=== PATIENT | male | born 1945 | race Caucasian/White ===

== ENCOUNTER 2018-12-21 15:46 | Outpatient (REF) | payer BC, SELFPAY ==
--- NOTE | 2018-12-21 13:32 | SKI_PTH ---
PATIENT: Ismael Espana LOC: [facility] U#:[id number] AGE/SX: 73/M ROOM: RE12/21/[address]: Rigo Stauffer DO : 1945 BED: DIS: 12/21/2018 SPEC #: [id number] RECD: 12/22/18 12:15 STATUS: JACKY MUÑIZ #: [id number] RUBÉN: 12/21/18 13:[address]: Rigo Stauffer DEPT: Surgical Specimen RECD BY: Trina Sawant ENTERED: 12/22/18 12:16 SP TYPE: AUDREY MORRIS DR: Ismael Roman Tissues: 1 - SKIN BIOPSY(SHAVE/PUNCH) 2 - SKIN BIOPSY(SHAVE/PUNCH) Procedures: SKIN LEVEL 4 Comments: [id number]
== END 2018-12-21 16:06 ==
LOC: LBN 15:46
PROVIDERS: PCP Internal Medicine; Visit Provider Otolaryngology Otolaryngology/Facial Plastic Surgery
DX: C44.319 Basal cell carcinoma of skin of other parts of face (principal); C44.219 Basal cell carcinoma of skin of left ear and external auricular canal
CPT/HCPCS: 88305

== ENCOUNTER 2019-05-13 14:31 | Outpatient (REF) | payer BC, SELFPAY ==
[2019-05-13 19:01] LABS: COMMENT (LAB VIEW ONLY) 135.46 mg/dL; Microalb ug/mg Crea 11.1 ug/mg Cr
== END 2019-05-13 14:51 ==
LOC: NCHCN 14:31
PROVIDERS: PCP Internal Medicine; Visit Provider Internal Medicine
DX: E11.9 Type 2 diabetes mellitus without complications (principal)
CPT/HCPCS: 82043; 82570

== ENCOUNTER 2019-08-16 16:14 | Outpatient (REF) | payer MEDICARE, BC, SELFPAY ==
[2019-08-16 19:22] LABS: ALT 55 U/L (16-63); Anion Gap 9.4 mmol/L (3-11); BUN 28 mg/dL (7-18); CO2 28.6 mmol/L (21.0-32.0); CREATININE 1.19 mg/dL (0.70-1.30); Calcium 10.6 mg/dL (8.5-10.1); Chloride 102 mmol/L (98-107); Glucose 109 mg/dL (70-100); LDL CHOLESTEROL 86 mg/dL (<100); Potassium 4.4 mmol/L (3.5-5.1); Sodium 140 mmol/L (136-145)
== END 2019-08-16 16:34 ==
LOC: NCHCO 16:14
PROVIDERS: PCP Internal Medicine; Visit Provider Internal Medicine
DX: I10 Essential (primary) hypertension (principal); E78.2 Mixed hyperlipidemia
CPT/HCPCS: 80048; 83721; 84460

== ENCOUNTER 2019-11-15 12:24 | Outpatient (REF) | payer MEDICARE, BC, SELFPAY ==
[2019-11-15 18:46] LABS: HCT 46.1 % (40.0-50.0); Mean Corp. HGB Concentration 34.7 g/dL (32.0-36.0); Mean Corpuscular Volume 86.3 fL (80-95); Mean Platelet Volume 11.2 fL (8.0-11.0); Platelet Count 278 x1000/uL (130-400); RBC 5.34 m/cumm (4.50-6.00); RBC Distribution Width 13.2 % (11.8-14.1); White Blood Cell Count 9.71 k/cumm (4.4-10.8)
[2019-11-15 19:05] LABS: TSH 0.97 uIU/mL (0.36-3.74)
== END 2019-11-15 12:44 ==
LOC: NCHCN 12:24
PROVIDERS: PCP Internal Medicine; Visit Provider Internal Medicine
DX: I10 Essential (primary) hypertension (principal); E11.9 Type 2 diabetes mellitus without complications; I20.9 Angina pectoris, unspecified; R53.83 Other fatigue
CPT/HCPCS: 85027; 84443

== ENCOUNTER 2020-06-30 11:37 | Outpatient (REF) | payer MEDICARE, BC, SELFPAY ==
[2020-07-04 22:34] LABS: SARS-CoV-2 RNA Undetected (Undetected); SARS-CoV-2 Specimen Source Nasal
== END 2020-06-30 11:57 ==
LOC: NCHCN 11:37
PROVIDERS: PCP Internal Medicine; Visit Provider Internal Medicine
DX: J06.9 Acute upper respiratory infection, unspecified (principal); Z11.59 Encounter for screening for other viral diseases
CPT/HCPCS: U0003

== ENCOUNTER 2020-07-21 16:59 | Outpatient (REF) | payer MEDICARE, BC, SELFPAY ==
[2020-07-21 19:37] LABS: C & S Indicated? Yes; WBC >50 HPF (0-5)
== END 2020-07-21 17:19 ==
LOC: NCHCN 16:59
PROVIDERS: PCP Internal Medicine; Visit Provider Internal Medicine
DX: N39.0 Urinary tract infection, site not specified (principal)
CPT/HCPCS: 87077; 81015; 87086; 87186

== ENCOUNTER 2020-08-10 12:32 | Outpatient (REF) | payer MEDICARE, BC, SELFPAY ==
[2020-08-10 19:28] LABS: ALT 69 U/L (16-63); Anion Gap 7.8 mmol/L (3-11); BUN 25 mg/dL (7-18); CO2 27.2 mmol/L (21.0-32.0); Calcium 10.6 mg/dL (8.5-10.1); Chloride 100 mmol/L (98-107); Estimated GFR 45.87 (mL/min/1.73m2); Glucose 172 mg/dL (74-106); LDL CHOLESTEROL 99 mg/dL (<100); Potassium 4.5 mmol/L (3.5-5.1); Sodium 135 mmol/L (136-145)
== END 2020-08-10 12:52 ==
LOC: NCHCN 12:32
PROVIDERS: PCP Internal Medicine; Visit Provider Internal Medicine
DX: E11.9 Type 2 diabetes mellitus without complications (principal); N39.0 Urinary tract infection, site not specified; M54.30 Sciatica, unspecified side; I10 Essential (primary) hypertension; Z00.00 Encounter for general adult medical examination without abnormal findings
CPT/HCPCS: 80048; 83721; 84460

== ENCOUNTER 2020-08-25 10:25 | Outpatient (REF) | payer MEDICARE, BC, SELFPAY ==
[2020-08-25 20:35] LABS: Bilirubin Negative (Negative); Blood Negative (Negative); Clarity Clear (Clear); Glucose 500 mg/dL (Negative); Ketones Negative (Negative); Leukocyte Esterase Negative (Negative); Nitrite Negative (Negative); Specific Gravity 1.025 (1.005-1.025); Urobilinogen 0.2 EU/dL (Up TO 0.2)
== END 2020-08-25 10:45 ==
LOC: NCHCN 10:25
PROVIDERS: PCP Internal Medicine; Visit Provider Internal Medicine
DX: N39.0 Urinary tract infection, site not specified (principal)
CPT/HCPCS: 81003

== ENCOUNTER 2021-02-15 20:45 | Outpatient (REF) | payer MEDICARE, BC, SELFPAY ==
[2021-02-15 16:02] LABS: Bilirubin Negative (Negative); Blood Trace-intact (Negative); Clarity Cloudy (Clear); Glucose 500 mg/dL (Negative); Ketones Negative (Negative); Leukocyte Esterase Trace (Negative); Nitrite Negative (Negative); Specific Gravity 1.025 (1.005-1.025); Urobilinogen 0.2 EU/dL (Up TO 0.2); pH 5.5 (5-8)
[2021-02-15 16:09] LABS: COMMENT (LAB VIEW ONLY) 124.24 mg/dL; Microalb ug/mg Crea 41.9 ug/mg Cr
[2021-02-15 16:19] LABS: Bacteria Many HPF (Negative); C & S Indicated? Yes; Casts Negative LPF (Negative); Crystals Negative HPF (Negative); Epithelial Cells Rare HPF (Negative); Mucus Negative (Negative); RBC 0-2 HPF (0-2); WBC 20-50 HPF (0-5)
== END 2021-02-15 20:46 | disposition home or self-care (01) ==
LOC: NCHCN 20:45
PROVIDERS: PCP Internal Medicine; Visit Provider Internal Medicine
DX: E11.9 Type 2 diabetes mellitus without complications (principal); I10 Essential (primary) hypertension; K64.9 Unspecified hemorrhoids; R82.998 Other abnormal findings in urine
CPT/HCPCS: 87077; 81003; 81015; 82043; 82570; 87086; 87186

== ENCOUNTER 2021-03-14 12:00 | Outpatient (REF) | payer MEDICARE, BC, SELFPAY ==
--- NOTE | 2021-03-14 12:00 | SKI_PTH ---
PATIENT: Ismael Espana LOC: [facility] U#:[id number] AGE/SX: 76/M ROOM: RE03/14/[address]: Ismael Roman : 1945 BED: DIS: 03/14/2021 SPEC #: [id number] RECD: 03/15/21 12:44 STATUS: JACKY MUÑIZ #: [id number] RUBÉN: 03/14/21 12:[address]: Ismael Roman DEPT: Surgical Specimen RECD BY: Trina Sawant Tissues: 1 - SKIN BIOPSY(SHAVE/PUNCH) Procedures: SKIN LEVEL 4 Comments: [id number]
--- OUTSIDE RECORDS SUMMARY | 2021-03-15 11:53 | XMS_ITS | Encounter Summary ---
:1945 Author Care Team Providers Name Role Phone Ismael Roman MD Primary Care Provider [phone] Mahesh Heath MD Dynamics Ax Consultant [phone] Fidel Junior General Surgeon [phone] Reason for Visit None recorded. Assessment and Plan 1. Nocturia Ismael has symptoms of fatigue , nocturia and nocturnal heartburn which may be indicative of an underlying sleep apnea. He has HTN which may be caused or worsened by untreated sleep apnea. I di scussed the pathophysiology of obstructi ve sleep apnea and the potential consequences of untreated ANDI including how it relates to his symptoms and comorbidities. I ordered a polysomnogram and discussed what will take place the night of the s leep study. He is advised that Ambien may be offered the night of the study and if taken he will need to not drive for at least eight hours after taking or longer if for any residual drowsiness. Also wi ll need to use caution when getting up at night after taking Ambien. I will see him back to review the results as soon as they are available. He was curious about treatments so I briefly covered oral ap pliance and CPAP. ADDENDUM 02/02/21: PSG denied by [facility], HS T ordered. I provided greater than 40 minutes in [facility] care of this patient, more than half the time was spent in [id number] counseling. ? sleep study, baseline diag nostic polysomnogram Discussion Note: None recorded.Patient educational handouts: No information available. Plan of Care Reminders Provider Appointments Follow up 06/07/2021 Martín Haddad 30 2:15PM MD Kumar ? Office 08/20/2021 Bubba Barba, 3:00PM COMMERCIAL TRUCK DRIVER ? Return to on or around Fidel Mariano Office 08/20/2022 [facility] None ? ? recorded. Referral None ? ? recorded. Procedures None ? ? recorded. Surgeries None ? ? recorded. Imaging None ? ? recorded. Medications Name Start Date ? ? amlodipine 10 mg tablet ? TAKE ONE TABLET BY MOUTH EVERY DAY aspirin 81 mg chewable tablet ? Chew 1 tablet every day by oral route. atorvastatin 40 mg tablet ? TAKE ONE TABLET BY MOUTH EVERY DAY BD Ultra-Fine Mini Pen Needle 31 gauge x 12/19 ? BD Ultra-Fine Sandi Pen Needle 32 gauge x ? USE DIRECTED ONCE DAILY celecoxib 200 mg capsule ? TAKE ONE CAPSULE BY MOUTH EVERY DAY REPLACES DICLOFE NAC Claritin 10 mg tablet ? Take 1 tablet every day by oral route. finasteride 5 mg tablet ? TAKE ONE TABLET BY MOUTH EVERY DAY fluorouracil 5 % topical cream ? fluticasone propionate 50 mcg/actuation nasal spray,ochoa spension ? SPRAY 2 SPRAYS IN EACH NOSTRIL ONCE DAILY garlic 1,000 mg capsule ? Take 1 capsule every day by oral route. glipizide 10 mg tablet ? Take 1 tablet twice a day by oral route. Invokana 300 mg tablet ? Take 1 tablet every day by oral route. losartan 100 mg tablet ? TAKE ONE TABLET BY MOUTH EVERY DAY Miralax 17 gram oral powder packet ? Take 1 packet every day by oral route. multivitamin ? once daily nitroglycerin 0.4 mg sublingual tablet ? PLACE ONE TABLET UNDER THE TONGUE EVERY 5 MINUTES FOR UP TO 3 DOSES NEEDED FOR CHEST PAIN. IF CHEST PAIN STILL PERSISTS CONTACT 911 nystatin 100,000 unit/gram topical cream ? twice daily to affected area OneTouch Delica Plus Lancet 33 gauge ? TESY T DIRECTED ONCE DAILY OneTouch Ultra Blue Test Strip ? TEST ONCE DAILY OneTouch Ultra2 Meter kit ? pantoprazole 40 mg tablet,delayed release ? TAKE ONE TABLET BY MOUTH EVERY DAY FOR 14 DAYS Restasis 0.05 % eye drops in a dropperette ? triamcinolone acetonide ? 0.1% cream apply to affected area twice daily triamcinolone acetonide 0.1 % topical cream ? Victoza 3-Sahil 0.6 mg/0.1 mL (18 mg/3 mL) subcutaneous pen injector ? INJECT 1.8MG SUBCUTANEOUSLY DAILY Vitamin C ? 1 tablet daily Medications Administered None recorded. Vitals Height Weight BMI Blood Pressure 6 ft 3 in 215.2 lbs 26.9 kg/m2 144/78 mm[Hg] Results Lab Results None recorded. Allergies Code Code System Name Reaction Severity Onset Penicillins Hives ? ? Notes: NO seafood allergy. No co ntrast allergy. Problems Name Status Onset Date Source ? Hyperlipidemia Active 11/19/2019 ? Coronary Arteriosclerosis Active 11/22/2019 ? Nocturia Active 01/29/2021 ? Basal Cell Carcinoma of Truncal Skin Active ? History Melanocytic Nevus of Trunk Active ? Histo ry Type 2 Diabetes Mellitus without Active ? 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 History 2 Diabetes Mellitus Mixed Hyperlipidemia Active ? History Serous Retinal Detachment Active ? Histor y Hypertensive Disorder Active ? History Angina Pectoris Active ? History Seasonal Allergic Rhinitis Active ? Histo ry Large Prostate Active ? History Atopic Dermatitis Active ? History Cutaneous Horn Active ? History Arthropathy Active ? History Sciatica Active ? History Backache Active ? History Dupuytren's Disease of Palm Active ? Hist ory Lack of Energy Active ? History Motion Sickness Active ? History Disorder of Skin And/or Subcutaneous Active ? History Tissue Pain in Right Foot Active ? History Long-term Current Use of Drug Therapy Active ? History Atherosclerosis of Coronary Artery Active ? History without Angina Pectoris Procedures Date Name Performed by ? 08/20/2019 Colonoscopy Information not avai lable Notes: colon polyps, diverticulosis 04/15/2016 Cardiac Catheterization Information not available Vaccine List Vaccine Type COVID-19, mRNA, LNP-S, PF, 100 mcg/0.5 m L dose 12/05/2020?100 mcg 01/01/2021?100 mcg Social History Tobacco Smoking Status Never Smoker Live alone or with others? with others Notes: spo use Alcohol intake Occasional Notes: 1 - 2 a mo [employer] Diet DIABETIC Are you currently employed? Y Notes: [facility] Smokeless Tobacco Status Never used smokeless tobacco Blind or serious difficulty N Notes: we ars glasses seeing Chewing tobacco none Hard of hearing or deaf in N Notes: sta rting with one or both ears? decrease in hearing Passive smoke exposure? N Most Recent Tobacco Use 03/07/2021 Screening E-cigarette/Vape Status Never used electronic cigarettes Advance directive Y Caffeine intake Occasional Notes: 1 cup coff ee daily Drug Use N Exercise level Occasional Notes: walk 1 mil e daily, Functional Status No Impairment. Past Encounters 01/29/2021 Nocturia Kerrie Barba COMMERCIAL TRUCK DRIVER: [address] [place] [address], Ph. History of Present Illness Note: <p>Ismael Espana is seen in consultation at the request of Mahesh Heath MD for evaluation of fatigue.</p><p>
</p><p>Ismael has a medical history to include arthropathy, CAD, DM, HLD, HTN, BPH, allergic rhinitis and chest pain.</p><p>
</p><div>Echo: November 06, 2020. LVEF 65%. Normal size. Mild concentric LVH. Right ventricle normal. Sinus. Diastolic indices appear normal, no evidence elevated left-sided filling pressures. Left atrium normal 25. Right atrium normal. Aortic valve trileaflet. Trivial TR. Pulmonary [id number] mmHg. Pericardium normal. Aortic root mildly dilated 3.9. Ascending normal 3.5. Arch normal 3.1. No coarct. No PDA. IVC normal. E primed 9, 8 (7, 10). E/E primed 8.8/10.0 (15, 12). TR max 1.97.&lt ;p>
</p></div><div>Stress: October 18, 2020. Ambulated 5 minutes 58 seconds on the Rayray protocol. Achieved 91% MPHR, 134 bpm. Stopped because of dyspnea. No chest pain. No EKG changes. Sinus rhythm baseline, no arrhythmia. Normal hemodynamics. Oxygen saturation 94% yoselin. Average functionality. Normal perfusion. LVEF 73%. Negative ischemia.</div><div>
</div><div>EKG: June 06, 2019. Sinus rhythm 75 bpm. Normal axis. Q waves lead III.No acute change. QT/QTc 352/378 ms.</div><div><p>
</p></div>&l t;div>Radiology: November 21, 2020. Chest x-ray. No acute abnormality.</div><div><p >
</p></div><div>Labs: November 06, 2020. Troponin less than 0.06x1. proBNP less than 50. BUN/creatinine 18/0.9. Calcium elevated 10.6. Chloride low 97. Lites normal otherwise. CBC normal.<p>June 24, 2020. BUN/creatinine 25/1.1. Sodium low 134, calcium elevated 10.7. Lites normal otherwise. AST/ALT normal. WBC 17.6. CBC normal otherwise.</p><p>
</p><p>{{Ismael# Patient}} feels {{his * her}} biggest problem with sleep is {{frequent urination# snoring waking up a lot not feeling rested}}. {{He * She}} typically goes to bedat {{10:45# 9}}pm. It takes {{15# 5}} minutes to fall asleep. {{He * She}} wakes up {{3-4# 1 2 3}} times a night to use the {{unknown reason pain bathroom*}} and it takes {{10# }} minutes to get back to sleep. {{He * She }} gets up at {{8# 5 6 7 8}}am to start {{his * her}} day. {{He* She}} does take naps daily for 30 minutes. {{He * She}} has no disturbances to {{his * her}} sleep. {{He * She}} has never had a sleep study. {{He * She}} sleeps {{alone with someone*}} in a bed.

SLEEP QUALITY: Feels quality of sleep most nights is {{good okay * poor}}.&l t;br>

DAYTIME ALERTNESS: Reports level of alertness most days to be {{alert low energy * sleepy very sleepy}}.

PSYCH SYMPTOMS: {{Has Has not*}} noted worsening memory {{and or*}} concentration. {{Does have Denies current problems with *}} irritability, depression, {{and or*}} anxiety. {{Has Has not*}} noted difficulty with calculations.

INSOMNIA SYMPTOMS: {{Does have Does not have*}} an active mind at night when trying to sleep. {{Does have Does not have*}} stressful thoughts interfering with sleep. {{Does * Does not}} watch the clock throughout the night. {{Does Does not*}} worry about getting a good night'ssleep.

BREATHING SYMPTOMS: {{Does have Does not have*}} snoring. {{Does have Does not have*}} witnessed apnea. {{Does have Does not have*}} nocturnal choking/gasping/dyspnea.{{Does have Does not have*}} mouth breathing. {{Does have * Does not have}} nasal congestion at night.

MOVEMENT SYMPTOMS: {{Does have * Does not have}} tossing & turning. {{Does have * Does not have}} messy sheets in the morning. {{Does have Does not have*}} leg or arm jerks, kicks or twitches in sleep or prior to falling asleep. {{Does Does not*}} have an aching, restless or crawling feeling in legs at night. {{Does Does not*}} have a hard time keeping legs still when trying to sleep. {{Does Does not*}} have muscle cramps or Fercho horses. {{Does Does not*}} have sleep walking or talking.

DREAM SYMPTOMS: {{Does have Does not have*}} nightmares often that affect ability to sleep. {{Does have Does not have*}} dreams of suffocating/drowning. {{Does * Does not}} dream shortly after falling asleep. {{Does Does not*}} see dreams in the room even when awake.{{Does Does not*}} see or hear things in the room when falling asleep that aren't really there. {{Does Does not*}} see things in the road when driving that aren't really there. {{Has Has not*}} had someone see then act our their dreams. {{Has Has not*}} accidentally injured themselves while sleeping due to own movements/behaviors.

CATAPLEXY SYMPTOMS: {{Does have Does not have*}} feel limp, lose strength, or fall asleep when veryangry, surprised or laughing. {{Does have Does not have*}} leg, arm or face weakness when upset. {{Has Has not*}} had episodes of being unable to move when waking up which is often frightening.

DRIVING: {{Has Has not*}} fallen asleep or nearly fallen asleep driving. {{Has had Has not had*}} an accident related to drowsy driving or not paying attention. {{Does Does not*}} forget the last few miles or minutes while driving. {{Has Has not*}} driven out of [place] and crossedcenter line or gone onto shoulder when driving. {{Has Has not*}} had a passenger tell them they look sleepy when driving.

ESS today 02/26
[place] Questionnaire Score 10/08</p></div>Review of Systems: ROS as noted in the HPI Review of Systems ? Notes: <p>wakes with dry mouth, SMYTH , chest pain, palpitations, heartburn (wakes with this sporadically), constipa tion, ED, nocturia 3-4/night, lightheadedness, joint pain (hands/back).</p> Physical Exam ? Notes: <p>General: A&O, well groome d, answers questions appropriately, {{mildly over weight # over weight obese morbidly obese normal weight thin}}.
HEAD: normocephal ic & atraumatic, {{normal appearing chin * retrognathia}}.
EYES: non icteric.
NOSE: open nasal passages, septum midline, no polyps or masses .
THROAT/MOUTH: moist mucous membranes, modified mallampati score {{ 1 2 * 3 4}}, tonsils without hypertrophy. Lateral wall narrowing grade {{1 2 3*}}. Tongue scalloping {{is is not*}} noted.
NECK: suppl e without palpable lymph nodes.
LUNGS: CTA all benoit. Good air movement.<b r>CARDIO: RRR without murmur, gallop or thrill.
ABDOMEN: soft and non tender with positive bowel sounds.
MS: Good ROM of all extremities. No cyanosis, clubbing or edema.
NEURO: A&O. Normal gait.
PSYCH: No rmal mood and affect.
CUTANEOUS: no overt lesions or rashes</p>
--- OUTSIDE RECORDS SUMMARY | 2021-03-15 11:53 | XMS_ITS | Encounter Summary ---
:1945 Author Care Team Providers Name Role Phone Ismael Roman MD Primary Care Provider [phone] Mahesh Heath MD Tool Straightener [phone] Fidel Junior General Surgeon [phone] Reason for Visit CAD - Coronary Artery Disease; SOB-Short ness of Breath; HTN-Hypertension Assessment and Plan Assessment Note Date: March 07, 2021 Referring: Re: Ismael Espana 75-year-old man Problems: 1. Coronary artery disease. History exertional angina. Positive stre ss test. Initial medical management. 2016: LHC: No critical occlusive disease . Subsequently, he has not have any furthe r exertional chest discomfort. 2. Fatigue. He does describe some fatigue. Does not snore. Fatigue does not limit him exertionally. 3. Shortness of breath. Patient remains fairly functional. He st ays busy around the house. He goes walking with his a distance of 1 mile. Does this 5+ days per week. This has an uphill section. He has been describing shor tness of breath on this section of his w alk. His walks faster than he does. He tries to keep up with her and is short of breath in this capacity. He denies shortness of breath otherwise. All of his other activities around the house are well-tolerated. He has no problem with chest discomfort chest pain tightness etc. Only saw the patient in June, we ag charisma to see if more exercise might not improve dyspnea, our hope that he may improve his conditioning. It appears that his dyspnea is persistent, no improvement w ith maintaining or increasing his baseli ne functionality. HPI: March 07, 2021. He picked up an exerc ise bike. He has been very consistent and faithful about using this, about 15 minutes/day. This was going well, however had hemorrhoids which limited his sitting on the bicycle seat. He is walking 10 to 15 minutes daily most days of the week. He has gone out for a longer walk about 45 minutes, he has hip discomfort which begins to be problematic at this sort of endurance. His breathing is about the same. No sign ificant chest discomfort. Denies PND orthopnea edema. No palpitations. Blood pressures at home are in the 120-130 mmHg range systolic. No presyncope or syncope. DATA: Cardiac risk factors: Positive cholester ol. Positive diabetes. Positive hypertension. Negative tobacco. Negative family history early coronary disease. Social history: Activity profile as abov e. Negative tobacco. Rare alcohol. Past medical history: Basal cell carcino ma. Dupuytren's disease of the palm. Prostatism. Motion sickness. Sciatica. Retinal detachment. Review of systems: A 10-point review of systems was obtained. Pertinent positives as described in HPI, all others negative. Allergies: NKDA Contrast allergies: Echo: November 06, 2020. LVEF 65%. Normal size. Mild concentric LVH. Right ventricle normal. Sinus. Diastolic indices appear normal, no evidence elevated left-sided filling pressures. Left atrium normal 25. Right atrium normal. Aortic valve tr ileaflet. Trivial TR. Pulmonary pressure 50-25 mmHg. Pericardium normal. Aortic root mildly dilated 3.9. Ascending normal 3.5. Arch normal 3.1. No coarct. No PDA. IVC normal. E primed 9, 8 (7, 10). E/E primed 8.8/10.0 (15, 12). TR max 1.97. April 05, 2015. LVEF 65%. Normal size. Mil d LVH. Right ventricle normal. Left atrium normal. Right atrium normal. Aortic valve trileaflet. Trivial TR. Negative pericardium. Aortic root normal 3.7. Ascendi ng normal 3.5. Arch normal 3.1. IVC norm al. Lipomatous interatrial septum. Rhythm unclear. Presumed sinus. E prime 7, 9 (7, 10). E/E primed 11.3, 9.5 (15, 12). Pulmonary pressure 25-30 mmHg plus right atrial pressure (25-35 mg total). Cardiac MRI: Stress: October 18, 2020. Ambulated 5 mi nutes 58 seconds on the Rayray protocol. Achieved 91% MPHR, 134 bpm. Stopped because of dyspnea. No chest pain. No EKG changes. Sinus rhythm baseline, no arrhythmi a. Normal hemodynamics. Oxygen saturatio n 94% yoselin. Average functionality. Normal perfusion. LVEF 73%. Negative ischemia. September 06, 2016. Ambulated 4 minutes 10 seconds on the Rayray protocol. 76% MPHR, 160 bpm. Stop because of fatigue. No EKG changes. No chest pain. Baseline echo LVEF 65%. Normal augmentation. Negative i schemia at submaximal heart rates. Indet erminate study. LHC: April 15, 2016. [facility]. Left main : Mild disease. LAD: Mild disease. LCx: Mild disease. RCA: Mild disease. RPDA. Multiple 50% proximal. IFR proximal RPDA: 1.0. Holter: Event monitor: EKG: March 07, 2021. Sinus rhythm 81 bpm. First-degree AV block. GA interval 222 ms. Normal axis. No acute change. QT/QTc 336/372 ms December 08, 2020. Sinus rhythm 86 bpm. Norm al axis. No acute change. QT/QTc 328/373 ms. June 06, 2019. Sinus rhythm 75 bpm. Normal axis. Q waves lead III. No acute change. QT/QTc 352/378 ms. June 06, 2017. Sinus rhythm 63 bpm. Normal axis. No acute change. QT/QTc 300 382/387 ms. April 15, 2016. Sinus rhythm 59 bpm. Norm al axis. No acute change. QT/QTc 402/397 ms. Radiology: November 21, 2020. Chest x-ra y. No acute abnormality. June 24, 2020. Chest x-ray. No foca l consolidation. Pulmonary function test: Labs: November 06, 2020. Troponin less th an 0.06x1. proBNP less than 50. BUN/creatinine 18/0.9. Calcium elevated 10.6. Chloride low 97. Lites normal otherwise. CBC normal. June 24, 2020. BUN/creatinine 25/1. 1. Sodium low 134, calcium elevated 10.7. Lites normal otherwise. AST/ALT normal. WBC 17.6. CBC normal otherwise. Medications: Amlodipine 10 mg daily, asp irin 81 mg daily, atorvastatin 40 mg daily, losartan 100 mg daily Vitamin C, Victoza, pantoprazole, multiv itamin, MiraLAX, Invokana, glipizide, garlic, fluticasone, finasteride, Claritin, celecoxib Exam: Blood pressure: 139/68 Heart rate: 83 Oxygen saturation: 96% Weight: 207 pounds, 215 pounds, 215 poun ds, 216.3 pounds General: Patient alert oriented appropri ate conversant. HEENT: JVP 7 cm sitting. Heart: Regular rate and rhythm, S1-S2, n o murmur gallop or rub. Lungs: Clear to auscultation bilaterally . Abdomen: Soft. Nontender. Nondistended. No sacral edema. Extremities: No lower extremity edema bi laterally. Assessment: 1. Chest pain. Apparently history abnormal stress test led to [facility] 2016: Nonocclusive coronary disease. Status post submaximal stress echo later in 2016 (negative ischemia at sub-max heart rate). Currently maintaining a reasonable activ ity profile without any significant exertional chest discomfort. Overall seems to be doing well. MPI November 2020: Negative ischemia. Maintained on aspirin beta-remedios stati n amlodipine. I did not alter his medications today, March 07, 2021. 2. Hypertension. Numbers are acceptable. 3. Shortness of breath. Is continuing to describe exertionally m ediated shortness of breath. No improvement with increased/ongoing activity profile. Evaluation November 2020: Echo normal LV systolic function. Diastolic indices appear normal. Right ventricle normal. Pulmonary pressures normal. MPI normal. Labs normal: Troponin, BNP, CBC. Chest x-ray normal. He has started to use an exercise bike w ith regular frequency. Appears to be going well. Limited because of issues sitting on a bicycle seat. Walking is likewise limited because of hip weakness. I encouraged him to walk multiple 10-min charles stretches daily. We agreed to get PFTs. At this point, I think his dyspnea relat ed to deconditioning. Thank you for allowing me to participate in this patient's care. Sincerely, Mahesh Heath MD, FACC Disposition: We will see him back 3 hugo hs. Time: 20-minute [id number] interview w ith patient. 10-minute chart review development completion 1. Dyspnea ? complete PFT w/ [facility] spirometry Discussion Note: None recorded.Patient educational handouts: No information available. Plan of Care Reminders Provider Appointments Follow up 06/07/2021 Martín Haddad 30 2:15PM MD Kumar ? Office 30 08/20/2021 Bubba Barba, 3:00PM RIDES ATTENDANT ? Return to on or around [facility] Office 08/20/2022 [facility] None ? [...] BMI Blood Pressure 6 ft 3 in 93.85 kg 25.9 kg/m2 139/68 mm[Hg] Results Lab Results None recorded. Allergies [...] Performed by ? 08/20/2019 Colonoscopy Information not avayala hernandez Notes: colon polyps, diverticulosis 04/15/2016 Cardiac Catheterization Information not available Vaccine List Vaccine Type COVID-19, mRNA, LNP-S, PF, 100 mcg/0.5 m L dose 12/05/2020?100 mcg 01/01/2021?100 mcg Social History Tobacco Smoking Status Never Smoker Live alone or with others? 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 Past Encounters 03/07/2021 Dyspnea Mahesh Heath MD: [address] [facility] [place] [address], Ph. History of Present Illness None recorded. Review of Systems None recorded. Physical Exam None recorded.
--- OUTSIDE RECORDS SUMMARY | 2021-03-15 11:53 | XMS_ITS ---
:1945 Author Care Team Providers Name Role Phone TRAVON ROTHMAN General Surgeon [phone] MARTINEZ PATTON MD Primary Care Provider [phone] MAHESH DAVIS MD Data Warehouse Developer [phone] Allergies Code Code System Name Reaction Severity Status Onset Penicillins Hives ? Active ? Notes: NO seafood allergy. No co ntrast allergy. Medications Name Status Start Date Stop Date ? ? Ambien 10 mg tablet Completed 11/28/2011 05/18/2013 1 Tablet: At bedtime as needed amlodipine 10 mg tablet Active ? Not avai lable aspirin 81 mg chewable tablet Active ? No t available Chew 1 tablet every day by oral route. atorvastatin 40 mg tablet Active ? Not av ailable TAKE ONE TABLET BY MOUTH EVERY DAY BD Ultra-Fine Mini Pen Needle Active ? No t available 31 gauge x 3/16 BD Ultra-Fine Sandi Pen Needle 32 gauge x 5/32 Active ? Not available USE DIRECTED ONCE DAILY celecoxib 200 mg capsule Active ? Not gerardo ilable TAKE ONE CAPSULE BY MOUTH EVERY DAY REPLACES DICLOFENAC Claritin 10 mg tablet Active ? Not availa ble Take 1 tablet every day by oral route. diclofenac ER 100 mg tablet,extended release 24 hr Completed ? 09/27/2020 TAKE ONE TABLET BY MOUTH EVERY DAY doxazosin 4 mg tablet Completed 05/18/2013 11/19/2017 1 Tablet: qhs - at bedtime fenofibrate micronized 200 mg capsule Completed 11/28/2011 12/05/2011 1 Capsule: qd - daily fexofenadine 180 mg tablet Completed 11/28/201108/19 1 Tablet: daily finasteride 5 mg tablet Active ? Not avai lable TAKE ONE TABLET BY MOUTH EVERY DAY Flomax 0.4 mg capsule Completed 08/19/2012 05/18/2013 1 Capsule: qd - daily fluorouracil 5 % topical cream Active ? N ot available fluticasone propionate 50 mcg/actuation nasal spray,suspension A ctive ? Not available SPRAY 2 SPRAYS IN EACH NOSTRIL ONCE DAILY garlic 1,000 mg capsule Active ? Not avai lable Take 1 capsule every day by oral route. glipizide 10 mg tablet Active ? Not avail able Take 1 tablet twice a day by oral route. glipizide ER 2.5 mg tablet, extended release 24 hr Completed ? 09/27/2020 Take 1 tablet twice a day by oral route for 90 days. glipizide ER 5 mg tablet, Completed ? 2020 extended release 24 hr hydrocodone 5 mg-acetaminophen 325 mg tablet Completed 08/19/2012 2 (two) Tablet: every four to six hours as needed Invokana 300 mg tablet Active ? Not avail able Take 1 tablet every day by oral route. lisinopril 20 mg-hydrochlorothiazide 12.5 mg tablet Completed 11/28/2011 05/18/2013 2 (two) Tablet: daily losartan 100 mg tablet Active ? Not avail able TAKE ONE TABLET BY MOUTH EVERY DAY metoprolol succinate ER 50 mg Completed ? tablet,extended release 24 hr Miralax 17 gram oral powder packet Active ? Not available Take 1 packet every day by oral route. multivitamin Active ? Not available once daily nitroglycerin 0.4 mg sublingual tablet Active ? Not available PLACE ONE TABLET UNDER THE TONGUE EVERY 5 MINUTES FOR UP TO 3 DOSES NEEDED FOR CHEST PAIN. IF CHEST PAIN STILL PERSISTS CONTACT 911 nystatin 100,000 unit/gram topical cream Active ? Not available twice daily to affected area OneTouch Delica Plus Lancet 33 gauge Active ? Not available TESY T DIRECTED ONCE DAILY OneTouch Ultra Blue Test Strip Active ? N ot available OneTouch Ultra2 Meter kit Active ? Not av ailable pantoprazole 20 mg tablet,delayed release Completed ? 01/13/2020 Take 1 tablet by oral route for 29 days. pantoprazole 40 mg tablet,delayed release Active ? Not available TAKE ONE TABLET BY MOUTH EVERY DAY FOR 14 DAYS Prilosec 20 mg capsule,delayed release Completed 3 11/19/[address]: qd - daily Restasis 0.05 % eye drops in a Active ? N ot available dropperette sulfamethoxazole 800 mg-trimethoprim 160 mg tablet Completed ? 09/27/2020 TAKE ONE TABLET BY MOUTH TWICE A DAY triamcinolone acetonide Active ? Not avai lable 0.1% cream apply to affected area twice daily triamcinolone acetonide 0.1 % Active ? No t available topical cream Verelan 180 mg capsule,extended release Completed 11/28/19 12 11/19/2017 1 Capsule ER 24HR: bid - twice daily Victoza 0.6 mg/0.1 mL (18 mg/3 mL) subcutaneous pen injector Com pleted ? 12/07/2020 Inject 2 mL every day by subcutaneous route. Victoza 3-Sahil 0.6 mg/0.1 mL (18 mg/3 mL) subcutaneous pen inject or Active ? Not available INJECT 1.8MG SUBCUTANEOUSLY DAILY Vitamin C Active ? Not available 1 tablet daily Problems Name Status Onset Date Source ? [...] diverticulosis 04/15/2016 Cardiac Catheterization Information not available 09/27/2020 XR, Chest, 2 View [facility] (Internal) [address] [place] [address] (Work Place) 09/27/2020 US, Echocardiogram, Transthoracic, [facility] Rad[facility] (Internal) Complete [address] [place], [place] [address] (Work Place) 09/27/2020 NM, Myocardial Perfusion Scan, W/ [facility] (Internal) Stress [address] [place] [address] (Work Place) Results Lab Results Date Name Specimen Result Interpretation Description Value Range Status Address ? 03/09/2021 EKG Done by ? No ? ? ? N orth Lab observation Count ry recorded. [facility] l Lab (Internal) : [address] 11/06/2020 CBC W/ Auto BLD ? Wbc 8.2 5.0-10.0 Final [place] Diff 10*3/uL 10*3/uL [facility] ab (Internal) : [address] ? ? BLD ? Rbc 5.58 4.60-6.0 Final [place] 10*6/uL 0 [facility] 10*6/uL Hospital Lab (Internal) : [address] ? ? BLD ? Hgb 16.6 g/dL 14.0-18. Final North 0 g/dL [facility] (Internal) : [address] ? ? BLD ? Hct 49.1 % 41.0-51. Final [place] 0 % [facility] (Internal) : [address] ? ? BLD ? Mcv 88.0 fL 80.0-96. Final [place] 0 fL [facility] (Internal) : [address] ? ? BLD ? Mch 29.7 pg 26.0-32. Final [place] 0 pg [facility] (Internal) : [address] ? ? BLD ? Mchc 33.8 g/dL 31.0-35. Final [place] 0 g/dL [facility] (Internal) : [address] ? ? BLD ? Rdw 12.2 % 11.5-14. Final [place] 5 % [facility] (Internal) : [address] ? ? BLD ? Plt 232 130-450 Final [place] 10*3/uL 10*3/uL [facility] (Internal) : [address] ? ? BLD ? Anc 3.97 ? Final [place] 10*3/uL [facility] (Internal) : [address] ? ? BLD ? Nlr 1.36 0.00-3.2 Final North 0 [facility] (Internal) : [address], [place] ? ? BLD ? Neutro 48.3 % 40.0-75. Final [facility] 0 % [facility] (Internal[facility] : [address] ? ? BLD ? Lymph 35.4 % 20.0-50. Final [facility] 0 % [facility] (Internal[facility] : [address] ? ? BLD ? [place] 8.9 % 2.0-10.0 Final [facility] % [facility] (Internal) : [address] ? ? BLD High Eos 6.1 % 1.0-6.0 Final [facility] % [facility] (Internal) : [address] ? ? BLD High Baso 1.2 % 0.0-1.0 Final [facility] % [facility] (Internal) : [address] ? ? BLD ? Ig 0.1 % 0.0-0.9 Final [facility] % [facility] (Internal[facility] : [address] t 11/06/2020 BMP, Serum S High g/r 319 mg/dL 74-106 Final [place] or Plasma mg/dL [facility] (Internal) : [address] ? ? S ? Bun 18 mg/dL 9-20 Final [place] mg/dL [facility] (Internal) : [address] t ? ? S ? Crea 0.90 0.66-1.2 Final [place] mg/dL 5 mg/dL [facility] (Internal) : [address] t ? ? S High Ca 10.6 8.4-10.2 Final [place] mg/dL mg/dL [facility] (Internal) : [address] ? ? S ? Na 138 137-145 Final [place] mmol/L mmol/L [facility] (Internal) : [address] ? ? S ? K 4.2 3.5-5.1 Final [place] mmol/L mmol/L [facility] (Internal) : [address] ? ? S Low Cl 97 mmol/L 98-107 Final [place] mmol/L [facility] (Internal) : [address] ? ? S ? Tco2 30.0 22.0-30. Final [place] mmol/L 0 mmol/L [facility] (Internal) : [address] 11/06/2020 BNP (B-type S ? Nt-probnp <50 pg/mL 0-125 F inal North Natriuretic pg/mL Count ry Peptide), Hospita l Lab Prohormone (Inter nal): N-terminal, [address], [address] Immunoassay, Blood 11/06/2020 Troponin I, S ? Trop <0.06 0.00-0.0 Final [place] Serum or NG/mL 6 NG/mL [facility] Plasma Hospital L ab (Internal) : [address] 06/24/2020 CBC W/ Auto BLD High Wbc 17.6 5.0-10.0 Final [place] Diff 10*3/uL 10*3/uL [facility] ab (Internal) : [address] ? ? BLD ? Rbc 4.70 4.60-6.0 Final [place] 10*6/uL 0 [facility] 10*6/uL Hospital Lab (Internal) : [address] ? ? BLD ? Hgb 14.1 g/dL 14.0-18. Final [place] 0 g/dL [facility] ab (Internal) : [address] ? ? BLD ? Hct 41.4 % 41.0-51. Final North 0 % [facility] ab (Internal) : [address] ? ? BLD ? Mcv 88.1 fL 80.0-96. Final North 0 fL [facility] (Internal) : [address] ? ? BLD ? Mch 30.0 pg 26.0-32. Final North 0 pg [facility] ab (Internal) : [address] ? ? BLD ? Mchc 34.1 g/dL 31.0-35. Final North 0 g/dL [facility] ab (Internal) : [address] ? ? BLD ? Rdw 12.4 % 11.5-14. Final North 5 % [facility] (Internal) : [address] ? ? BLD ? Plt 215 130-450 Final [place] 10*3/uL 10*3/uL [facility] (Internal) : [address] 06/24/2020 Differential BLD High Polys 87 % 40-75 % Final [facility], [facility] Blood Hospital L ab (Internal) : [address] ? ? BLD ? Bands 0 % 0-5 % Final [facility] ab (Internal) : [address] ? ? BLD Low Lymphs 6 % 20-50 % Final [facility] L ab (Internal) : [address] ? ? BLD ? [place] 4 % 2-10 % Final [facility] ab (Internal) : [address] ? ? BLD ? Eos 0 % 0-6 % Final [facility] ab (Internal) : [address] ? ? BLD ? Baso 0 % 0-1 % Final [facility] ab (Internal) : [address] ? ? BLD ? Atyp Lymph 3 % ? Final [facility] ab (Internal) : [address] ? ? BLD ? Plts, Est. adequate adequate Final N orth [facility] ab (Internal) : [address] ? ? BLD ? RBC normal normal Final [facility] L ab (Internal) : [address] ? ? BLD ? Baso Stipp rare ? Final [facility] ab (Internal) : [address] 06/24/2020 Neutrophil BLD ? Anc-manual 15.34 ? Ilana antonio [place] Count, 10*3/uL [facility] Absolute Hospital Lab (Anc), Blood (Int ernal): [address] 06/24/2020 Nlr-manual BLD High Nlr - 14.50 0.00-3.[address] Hospital L ab (Internal) : [address] 06/24/2020 Urinalysis, UR ? UA-color yellow pale Final [place] Dipstick, yellow [facility] Reflex Micro Hosp ital Lab (Internal) : [address] ? ? UR ABNORMAL UA-appear hazy clear Final [facility] L ab (Internal) : [address] ? ? UR ? UA-spec 1.020 1.003-1. Final [place] Grav [address] [place] [address] L ab (Internal) : [address] ? ? UR ? UA-pH 5.5 [pH] 4.6-8.0 Final [place] [pH] [facility] L ab (Internal) : [address] ? ? UR ? UA-leuk Est negative negative Final [facility] L ab (Internal) : [address] ? ? UR ? UA-nitrite negative negative Final N [facility] L ab (Internal) : [address] ? ? UR ABNORMAL UA-prot trace negative Final [facility] ([facility]) : [address] ? ? UR ? UA-gluc 2+ negative Final [facility] ab (Internal) : [address] ? ? UR ? UA-ketone negative negative Final No rth [facility] L ab (Internal) : [address] t ? ? UR ? UA-urobil normal normal Final [facility] ab (Internal) : [address] ? ? UR ? UA-bili negative negative Final [facility] L ab (Internal) : [address] ? ? UR ABNORMAL UA-blood trace negative Final [facility] ab (Internal) : [address] 06/24/2020 CMP, Serum S High g/r 333 mg/dL 74-106 Final [place] or Plasma mg/dL [facility] L ab (Internal) : [address] ? ? S High Bun 25 mg/dL 9-20 Final [place] mg/dL [facility] L ab (Internal) : [address] ? ? S ? Crea 1.10 0.66-1.2 Final [place] mg/dL 5 mg/dL [facility] L ab (Internal) : [address] ? ? S High Ca 10.7 8.4-10.2 Final [place] mg/dL mg/dL [facility] L ab (Internal) : [address] ? ? S Low Na 134 137-145 Final [place] mmol/L mmol/L [facility] Hospital L ab (Internal) : [address] ? ? S ? K 4.3 3.5-5.1 Final [place] mmol/L mmol/L [facility] Hospital L ab (Internal) : [address] ? ? S ? Cl 100 98-107 Final [place] mmol/L mmol/L [facility] L ab (Internal) : [address] ? ? S ? Tco2 25.0 22.0-30. Final [place] mmol/L 0 mmol/L [facility] L ab (Internal) : [address] ? ? S ? Tp 7.4 g/dL 6.3-8.2 Final [place] g/dL [facility] L ab (Internal) : [address] ? ? S ? Alb 4.2 g/dL 3.5-5.0 Final [place] g/dL [facility] L ab (Internal) : [address] ? ? S ? Tbil 1.1 mg/dL 0.2-1.3 Final [place] mg/dL [facility] L ab (Internal) : [address] ? ? S ? Alp 77 U/L 38-126 Final [place] U/L [facility] L ab (Internal) : [address] ? ? S ? Alt (Sgpt) 27 U/L 21-72 Final [place] U/L [facility] L ab (Internal) : [address] ? ? S ? Ast (Sgot) 22 U/L 17-59 Final [place] U/L [facility] L ab (Internal) : [address] 06/24/2020 Urinalysis, UR ABNORMAL UA-WBC 10-25 0-3 Final [place] Microscopic [hpf] [hpf] Count Hospital L ab (Internal) : [address] ? ? UR ? UA-RBC 0-2 [hpf] 0-2 Final North [hpf] [facility] L ab (Internal) : [address] ? ? UR ABNORMAL UA-bacteria moderate none Final North [hpf] seen [facility] [hpf] Hospital L ab (Internal) : [address] ? ? UR ABNORMAL UA-epitheli few [hpf] none Final North al seen Country [hpf] [facility] ab (Internal) : [address] ? ? UR ABNORMAL UA-mucus moderate none Final Nor th [hpf] seen [facility] [hpf] [facility] ab (Internal) : [address] ? ? UR ? Ca Ox Cryst few [hpf] ? Final N orth [facility] ab (Internal) : [address] ? ? UR ? Granular C rare ? Final North [hpf] [facility] ab (Internal) : [address] 06/24/2020 Culture UR ? Final microbiol ? Final No rth ([place] [place] Count), results Hospital Lab Urine (Internal) : [address] 06/13/2020 EKG Done by ? No ? ? ? N orth Lab observation Count ry recorded. Hospita l Lab (Internal) : [address] 08/20/2019 Pathology TISS - Report (see ? Final No rth Study below) [facility] ab (Internal) : [address] 12/11/2017 Pathology TISS ? Report results ? Final N orth Study below [facility] ab (Internal) : [address] 06/11/2017 Venipuncture BLD ? Venpn* ? ? Final [facility] ab (Internal) : [address] 06/11/2017 CMP, Serum S High g/r 157 mg/dL 74-106 Final North or Plasma mg/dL [facility] ab (Internal) : [address] ? ? S High Bun 23 mg/dL 9-20 Final [place] mg/dL [facility] ab (Internal) : [address] ? ? S ? Crea 1.00 0.66-1.2 Final [place] mg/dL 5 mg/dL [facility] L ab (Internal) : [address] ? ? S ? Ca 9.9 mg/dL 8.4-10.2 Final [place] mg/dL [facility] L ab (Internal) : [address] ? ? S ? Na 140 137-145 Final [place] mmol/L mmol/L [facility] ab (Internal) : [address] ? ? S ? K 4.3 3.5-5.1 Final [place] mmol/L mmol/L [facility] (Internal) : [address] ? ? S ? Cl 100 98-107 Final [place] mmol/L mmol/L [facility] (Internal) : [address] ? ? S ? Tco2 26.0 22.0-30. Final [place] mmol/L 0 mmol/L [facility] (Internal) : [address] ? ? S ? Tp 7.9 g/dL 6.3-8.2 Final [place] g/dL [facility] (Internal) : [address] ? ? S ? Alb 4.7 g/dL 3.5-5.0 Final [place] g/dL [facility] (Internal) : [address] ? ? S ? Tbil 0.9 mg/dL 0.2-1.3 Final [place] mg/dL [facility] (Internal) : [address] ? ? S ? Alp 66 U/L 38-126 Final [place] U/L [facility] (Internal) : [address] ? ? S ? Alt (Sgpt) 48 U/L 21-72 Final [facility] U/L [facility] (Internal) : [address] ? ? S ? Ast (Sgot) 27 U/L 17-59 Final [facility] U/L [facility] (Internal) : [address] 06/11/2017 Lipid Panel, S ? Chol 187 mg/dL 50-200 Ilaan l [place] Serum mg/dL [facility] (Internal) : [address] ? ? S High Trig 362 mg/dL 10-150 Final [place] mg/dL [facility] (Internal) : [address] ? ? S Low Hdl 34 mg/dL 40-60 Final [place] mg/dL [facility] (Internal) : [address] ? ? S ? Ldl 81 mg/dL 0-130 Final [place] mg/dL [facility] (Internal) : [address] t Past Encounters 03/07/2021 Dyspnea Mahesh Davis MD: [address], [place] [address], Ph. 01/29/2021 Nocturia Kerrie Barba [employer] [employer]TER: [address] [place] [address], Ph. 12/07/2020 Mahesh Davis MD: [address], [place] [address], Ph. 09/27/2020 Mahesh Davis MD: [address], [place] [address], Ph. 06/06/2020 Mahesh Davis MD: [address], [place] [address], Ph. 01/14/2020 Mahesh Davis MD: [address], [place] [address], Ph. Social History Tobacco Smoking Status Never Smoker Vaccine List Vaccine Type COVID-19, mRNA, LNP-S, PF, 100 mcg/0.5 m L dose 12/05/2020?100 mcg 01/01/2021?100 mcg Plan of Care Reminders Provider Appointments None ? ? recorded. Lab None ? ? recorded. Referral None ? ? recorded. Procedures None ? ? recorded. Surgeries None ? ? recorded. Imaging None ? ? recorded. Vitals 03/07/2021 01:45PM Follow Up 30 Height Weight BMI Blood Pressure 190.5 cm 93.85 kg 25.9 kg/m2 139/68 mm[Hg] 01/29/2021 09:30AM New Patient 45 Height Weight BMI Blood Pressure 190.5 cm 97.61 kg 26.9 kg/m2 144/78 mm[Hg] 12/07/2020 11:30AM Follow Up 30 Weight Blood Pressure 97.9 kg 153/85 mm[Hg] 09/27/2020 01:45PM Follow Up 30 Weight Blood Pressure 97.9 kg 146/78 mm[Hg] 06/06/2020 01:00PM Follow Up 15 Weight Blood Pressure 98.1 kg 133/75 mm[Hg]
== END 2021-03-14 12:01 | disposition home or self-care (01) ==
LOC: LBN 12:00
PROVIDERS: PCP Internal Medicine; Visit Provider Internal Medicine
DX: L43.8 Other lichen planus (principal)
CPT/HCPCS: 88305

== ENCOUNTER 2021-06-26 20:03 | Outpatient (REF) | payer MEDICARE, BC, SELFPAY ==
[2021-06-28 11:57] LABS: COVID-19 RT-PCR UVMMC Result Negative (Negative)
== END 2021-06-26 20:04 | disposition home or self-care (01) ==
LOC: NCHCN 20:03
PROVIDERS: PCP Internal Medicine; Visit Provider Internal Medicine
DX: Z20.822 Contact with and (suspected) exposure to COVID-19 (principal)
CPT/HCPCS: U0003

== ENCOUNTER 2021-07-12 19:04 | Outpatient (REF) | payer MEDICARE, BC, SELFPAY ==
[2021-07-12 20:14] LABS: Bacteria Negative HPF (Negative); C & S Indicated? C&S Done As Ordered; Crystals Negative HPF (Negative); Epithelial Cells Negative HPF (Negative); Mucus Negative (Negative); Other Cells Negative (Negative); RBC >50 HPF (0-2); WBC >50 HPF (0-5)
[2021-07-13 17:30] LABS: PSA, Screening 4.2 ng/mL (0.0-6.5)
== END 2021-07-12 19:05 | disposition home or self-care (01) ==
LOC: NCHCN 19:04
PROVIDERS: PCP Internal Medicine; Visit Provider Physician Assistant
DX: N40.0 Benign prostatic hyperplasia without lower urinary tract symptoms (principal); R35.1 Nocturia; R30.0 Dysuria
CPT/HCPCS: 84153; 87077; 81015; 87086; 87186

== ENCOUNTER 2021-08-07 14:59 | Outpatient (REF) | payer MEDICARE, BC, SELFPAY | END 2021-08-07 15:00 | disposition home or self-care (01) | LOC: NCHCN 14:59 | PROVIDERS: PCP Internal Medicine; Visit Provider Physician Assistant | DX: R30.0 Dysuria (principal) | CPT/HCPCS: 87086 ==

== ENCOUNTER 2021-08-15 15:10 | Outpatient (REF) | payer MEDICARE, BC, SELFPAY ==
[2021-08-15 22:12] LABS: Clarity Clear (Clear); Leukocyte Esterase Negative (Negative); Specific Gravity 1.025 (1.005-1.025)
[2021-08-15 22:13] LABS: Bacteria Negative HPF (Negative); Bilirubin Negative (Negative); Blood Negative (Negative); C & S Indicated? No; Casts Negative LPF (Negative); Crystals Negative HPF (Negative); Epithelial Cells Negative HPF (Negative); Glucose 500 mg/dL (Negative); Ketones Negative (Negative); Mucus Negative (Negative); Nitrite Negative (Negative); RBC Negative HPF (0-2); Urobilinogen 0.2 EU/dL (Up TO 0.2); WBC Negative HPF (0-5)
== END 2021-08-15 15:11 | disposition home or self-care (01) ==
LOC: NCHCN 15:10
PROVIDERS: PCP Internal Medicine; Visit Provider Internal Medicine
DX: R30.0 Dysuria (principal); R31.9 Hematuria, unspecified
CPT/HCPCS: 81003; 81015

== ENCOUNTER 2021-08-27 18:01 | Outpatient (REF) | payer MEDICARE, BC, SELFPAY | END 2021-08-27 18:02 | disposition home or self-care (01) | LOC: NCHCN 18:01 | PROVIDERS: PCP Internal Medicine; Visit Provider Internal Medicine | DX: N39.0 Urinary tract infection, site not specified (principal) | CPT/HCPCS: 87086 ==

== ENCOUNTER 2021-10-15 18:11 | Outpatient (REF) | payer MEDICARE, SELFPAY | END 2021-10-15 18:12 | disposition home or self-care (01) | LOC: NCHCN 18:11 | PROVIDERS: PCP Internal Medicine; Visit Provider Internal Medicine | DX: N39.0 Urinary tract infection, site not specified (principal) | CPT/HCPCS: 87077; 87086; 87186 ==

== ENCOUNTER 2022-03-11 15:08 | Outpatient (REF) | payer MEDICARE, SELFPAY ==
[2022-03-11 19:41] LABS: Albumin 4.2 g/dL (3.4-5.0); Anion Gap 10.6 mmol/L (3-11); BUN 19 mg/dL (7-18); CO2 28.4 mmol/L (21.0-32.0); Calcium 10.5 mg/dL (8.5-10.1); Chloride 101 mmol/L (98-107); Glucose 183 mg/dL (74-106); Potassium 4.4 mmol/L (3.5-5.1); Sodium 140 mmol/L (136-145)
[2022-03-11 19:52] LABS: PHOSPHORUS 3.4 mg/dL (2.6-4.7)
== END 2022-03-11 15:09 | disposition home or self-care (01) ==
LOC: NCHCN 15:08
PROVIDERS: PCP Internal Medicine; Visit Provider Internal Medicine
DX: E21.3 Hyperparathyroidism, unspecified (principal)
CPT/HCPCS: 80069; 82306

== ENCOUNTER 2022-07-19 14:34 | Outpatient (REF) | payer MEDICARE, SELFPAY ==
--- NOTE | 2022-07-19 14:05 | SKI_PTH ---
PATIENT: Ismael Espana LOC: [facility] U#:[id number] AGE/SX: 77/M ROOM: RE07/19/[address]: DEN Vu : 1945 BED: DIS: 07/19/2022 SPEC #: [id number] RECD: 07/19/22 15:20 STATUS: JACKY REQ #: [id number] RUBÉN: 07/19/22 14:[address]: Ernst Suresh DEPT: Surgical Specimen RECD BY: Trina Sawant ENTERED: 07/19/22 15:21 SP TYPE: SKI OTHR DR: Ismael Roman Tissues: 1 - SKIN BIOPSY(SHAVE/PUNCH) Procedures: SKIN LEVEL 4 Comments: [id number]
== END 2022-07-19 14:35 | disposition home or self-care (01) ==
LOC: LBN 14:34
PROVIDERS: PCP Internal Medicine; Visit Provider Physician Assistant
DX: D22.39 Melanocytic nevi of other parts of face (principal)
CPT/HCPCS: 88305

== ENCOUNTER 2022-09-19 14:16 | Outpatient (REF) | payer MEDICARE, SELFPAY ==
[2022-09-19 19:10] LABS: HCT 48.5 % (40.0-50.0); HGB 16.5 g/dL (13.5-17.5); MCH 29.4 pg (27.0-33.0); MCV 87 fL (80-95); MPV 10.9 fL (8.0-11.0); Platelet Count 252 10^3/uL (130-400); RBC 5.61 10^6/uL (4.36-5.78); RDW 12.5 % (11.8-14.1); RDW-SD 39.6 fL; WBC 9.43 10^3/uL (4.4-10.8)
[2022-09-19 19:32] LABS: ALT 38 U/L (16-63); Anion Gap 7.6 mmol/L (3-11); BUN 18 mg/dL (7-18); CO2 30.4 mmol/L (21.0-32.0); CREATININE 1.1 mg/dL (0.70-1.30); Calcium 9.6 mg/dL (8.5-10.1); Chloride 99 mmol/L (98-107); Creatine Kinase 55 U/L (39-308); Estimated GFR 70.01 (mL/min/1.73m2); Glucose 140 mg/dL (74-106); Potassium 4.1 mmol/L (3.5-5.1); Sodium 137 mmol/L (136-145)
[2022-09-23 17:08] LABS: Alpha-1-Antitrypsin 113 mg/dL (100 - 190); Alpha-1-Antitrypsin Phenotype MS bands
== END 2022-09-19 14:17 | disposition home or self-care (01) ==
LOC: NCHCN 14:16
PROVIDERS: PCP Internal Medicine; Visit Provider Internal Medicine
DX: E88.01 Alpha-1-antitrypsin deficiency (principal); I10 Essential (primary) hypertension; J45.30 Mild persistent asthma, uncomplicated; E11.9 Type 2 diabetes mellitus without complications
CPT/HCPCS: 80048; 82550; 85027; 82103; 82104; 84460

== ENCOUNTER 2022-11-14 16:09 | Outpatient (REF) | payer MEDICARE, SELFPAY ==
[2022-11-14 18:45] LABS: Bilirubin Negative (Negative); Blood Negative (Negative); Clarity Clear (Clear); Glucose 100 mg/dL (Negative); Ketones Negative (Negative); Leukocyte Esterase Negative (Negative); Nitrite Negative (Negative); Specific Gravity <= 1.005 (1.005-1.025); Urobilinogen 0.2 EU/dL (Up TO 0.2)
== END 2022-11-14 16:10 | disposition home or self-care (01) ==
LOC: NCHCN 16:09
PROVIDERS: PCP Internal Medicine; Visit Provider Internal Medicine
DX: R30.0 Dysuria (principal)
CPT/HCPCS: 81003

== ENCOUNTER 2023-07-10 17:55 | Outpatient (REF) | payer MEDICARE, SELFPAY ==
[2023-07-10 20:01] LABS: ALT 41 U/L (16-63); BUN 19 mg/dL (7-18); Calcium 9.5 mg/dL (8.5-10.1); Chloride 100 mmol/L (98-107); Cholesterol 200 mg/dL (<200); Creatine Kinase 83 U/L (39-308); Glucose 225 mg/dL (74-106); HDL Cholesterol 42 mg/dL (40-60); Sodium 136 mmol/L (136-145); Triglyceride 753 mg/dL (<150)
[2023-07-10 20:21] LABS: LDL CHOLESTEROL 85 mg/dL (<100)
== END 2023-07-10 17:56 | disposition home or self-care (01) ==
LOC: NCHCN 17:55
PROVIDERS: PCP Internal Medicine; Visit Provider Internal Medicine
DX: E78.2 Mixed hyperlipidemia (principal); I10 Essential (primary) hypertension
CPT/HCPCS: 80048; 80061; 82550; 83721; 84460

== ENCOUNTER 2023-07-24 11:31 | Outpatient (REF) | payer MEDICARE, SELFPAY ==
[2023-07-24 19:48] LABS: Cholesterol 191 mg/dL (<200); HDL Cholesterol 46 mg/dL (40-60); TSH (W/Ref FT4) 2.52 uIU/mL (0.36-3.74); Triglyceride 419 mg/dL (<150)
[2023-07-24 20:14] LABS: LDL CHOLESTEROL 90 mg/dL (<100)
== END 2023-07-24 11:32 | disposition home or self-care (01) ==
LOC: NCHCN 11:31
PROVIDERS: PCP Internal Medicine; Visit Provider Internal Medicine
DX: E78.49 Other hyperlipidemia (principal)
CPT/HCPCS: 80061; 83721; 84443

== ENCOUNTER 2023-12-25 15:14 | Outpatient (REF) | payer MEDICARE, SELFPAY ==
[2023-12-25 19:21] LABS: Anion Gap 10.7 mmol/L (3-11); BUN 19 mg/dL (7-18); CO2 28.3 mmol/L (21.0-32.0); Calcium 9.6 mg/dL (8.5-10.1); Chloride 101 mmol/L (98-107); Glucose 210 mg/dL (74-106); Magnesium 1.6 mg/dL (1.8-2.4); Potassium 4.2 mmol/L (3.5-5.1); Sodium 140 mmol/L (136-145)
== END 2023-12-25 15:15 | disposition home or self-care (01) ==
LOC: NCHCN 15:14
PROVIDERS: PCP Internal Medicine; Visit Provider Internal Medicine
DX: E11.9 Type 2 diabetes mellitus without complications (principal)
CPT/HCPCS: 80048; 83735

== ENCOUNTER 2024-07-15 17:32 | Outpatient (REF) | payer MEDICARE, SELFPAY ==
[2024-07-15 19:26] LABS: HCT 46.2 % (40.0-50.0); MCH 30.5 pg (27.0-33.0); MCHC 34.6 % (32.0-36.0); MCV 88 fL (80-95); MPV 10.7 fL (8.0-11.0); Platelet Count 247 10^3/uL (130-400); RBC 5.24 10^6/uL (4.36-5.78); RDW 12.5 % (11.8-14.1); RDW-SD 40.5 fL; WBC 9.87 10^3/uL (4.4-10.8)
[2024-07-15 19:39] LABS: ALT 53 U/L (16-63); AST 27 U/L (15-37); Albumin 4.1 g/dL (3.4-5.0); Alkaline Phosphatase 78 U/L (46-116); Anion Gap 8.6 mmol/L (3-11); BUN 18 mg/dL (7-18); Bilirubin, Total 0.58 mg/dL (0.2-1.0); CO2 31.4 mmol/L (21.0-32.0); CREATININE 1.1 mg/dL (0.70-1.30); Chloride 99 mmol/L (98-107); Estimated GFR 69.14 (mL/min/1.73m2); Glucose 158 mg/dL (74-106); Lipase 81 U/L (16-77); Potassium 4.2 mmol/L (3.5-5.1); Sodium 139 mmol/L (136-145); Total Protein 8.1 g/dL (6.4-8.2)
[2024-07-15 19:42] LABS: Microalb ug/mg Crea 30.7 ug/mg Cr
[2024-07-15 19:56] LABS: Calcium 9.4 mg/dL (8.5-10.1)
== END 2024-07-15 17:33 | disposition home or self-care (01) ==
LOC: NCHCN 17:32
PROVIDERS: PCP Internal Medicine; Visit Provider Internal Medicine
DX: E11.9 Type 2 diabetes mellitus without complications (principal)
CPT/HCPCS: 80053; 83690; 85027; 82043; 82570

== ENCOUNTER 2025-08-25 12:15 | Outpatient (REF) | payer MEDICARE, SELFPAY ==
[2025-08-25 19:20] LABS: Anion Gap 5.9 mmol/L (3-11); BUN 18 mg/dL (9-23); CO2 31.1 mmol/L (20.0-31.0); Calcium 10.0 mg/dL (8.3-10.6); Chloride 103 mmol/L (98-107); Cholesterol 172 mg/dL (<200); Glucose 151 mg/dL (74-106); HDL Cholesterol 39 mg/dL (>40); Potassium 4.5 mmol/L (3.5-5.1); Sodium 140 mmol/L (136-145)
== END 2025-08-25 12:16 | disposition home or self-care (01) ==
LOC: NCHCN 12:15
PROVIDERS: PCP Internal Medicine; Visit Provider Nurse Practitioner
DX: I10 Essential (primary) hypertension (principal)
CPT/HCPCS: 80048; 80061; 83721